=== PATIENT | female | born 1960 | race Caucasian/White ===

== ENCOUNTER 2023-01-01 15:35 | Outpatient (REF) | payer MEDICAID, SELFPAY ==
[2023-01-01 17:14] LABS: Alanine Aminotransferase 13 U/L (0-31); Albumin Level 4.7 g/dL (3.5-5.0); Alkaline Phosphatase 62 U/L (39-117); Aspartate Amino Transferase 21 U/L (5-31); Bilirubin Direct 0.2 mg/dL (0.0-0.5); Bilirubin Total 0.4 mg/dL (0.0-1.0); Total Protein 7.7 g/dL (6.5-8.0)
[2023-01-02 07:38] LABS: HIV AB/AG Nonreactive (Nonreactive); HIV Num 1 0.05 S/CO (0.00-0.99); ~HepC Num1 2.09 S/CO (0.00-0.79); ~Hepatitis C Antibody Reactive (Nonreactive)
[2023-01-02 07:58] LABS: Syphilis Screen Nonreactive (Nonreactive)
[2023-01-03 16:49] LABS: TS Negative Control Passed; TS Panel A 0; TS Panel B 1; TS Positive Control Passed; TSpotTB Negative (Negative)
[2023-01-04 18:23] LABS: HCV Log PCR <1.18 NOT DETECTED Log IU/mL (NOT DETECTED); HepC Viral Load <15 NOT DETECTED IU/mL (NOT DETECTED)
== END 2023-01-01 15:36 | disposition home or self-care (01) ==
LOC: HO.HHCL 15:35
PROVIDERS: Visit Provider Family Medicine
DX: Z11.4 Encounter for screening for human immunodeficiency virus [HIV] (principal); Z11.1 Encounter for screening for respiratory tuberculosis; F11.20 Opioid dependence, uncomplicated
CPT/HCPCS: 36415; 80076; 86481; 86780; 86803; 87389; 87522

== ENCOUNTER 2023-07-23 16:26 | Outpatient (REF) | payer MEDICAID, SELFPAY ==
[2023-07-23 17:46] LABS: MANUAL DIFF FLAG NO
[2023-07-23 17:54] LABS: Basophils Percent Auto 0.5 % (0-2); Eosinophils Absolute Auto 0.3 X10*3/uL (0.0-0.4); Eosinophils Percent Auto 3.2 % (0-4); Hematocrit 41.6 % (37.0-47.0); Hemoglobin 13.7 g/dl (12.0-16.0); Imm Gran Abs Auto 0.01 X10*3/uL (0.00-0.03); Imm Gran Pct Auto 0.1 % (0.0-0.4); Lymphocytes Absolute Auto 2.6 X10*3/uL (1.2-4.9); Lymphocytes Percent Auto 33.1 % (20-40); Mean Corpuscular HGB Conc 32.9 g/dl (31.0-35.0); Mean Corpuscular Hemoglobin 31.4 pg (27.0-33.0); Mean Corpuscular Volume 95.2 fL (80.0-98.0); Mean Platelet Volume 10.2 fL (9.4-12.3); Monocytes Absolute Auto 0.6 X10*3/uL (0.1-1.2); Monocytes Percent Auto 8.1 % (2-11); Neutrophils Absolute Auto 4.3 x10*3/uL (2.0-8.3); Platelet Count 226 X10*3/uL (160-400); Red Blood Count 4.37 X10*6/uL (4.20-5.50); White Blood Count 7.9 X10*3/uL (4.8-10.8)
[2023-07-23 18:27] LABS: Erythrocyte Sedimentation Rate 6 MM/HR (0-20)
[2023-07-23 19:06] LABS: Alanine Aminotransferase 17 U/L (0-31); Albumin Level 4.2 g/dL (3.5-5.0); Alkaline Phosphatase 63 U/L (39-117); Anion Gap 15 (12-20); Aspartate Amino Transferase 19 U/L (5-31); Bilirubin Total 0.2 mg/dL (0.0-1.0); Blood Urea Nitrogen 23 mg/dL (9-16); Calcium 9.5 mg/dL (8.4-10.2); Carbon Dioxide 25 mmol/L (22-29); Chloride 106 mmol/L (96-108); Cholesterol 207 mg/dL (<200); Estimated Glomerular Filt Rate > 60; Glucose Random 94 mg/dL (60-115); HDL Cholesterol 81 mg/dL (>40); LDL Cholesterol Calculated 95 mg/dL (<100); Potassium 4.6 mmol/L (3.3-5.1); Sodium 141 mmol/L (135-145); Total Protein 6.9 g/dL (6.5-8.0); Triglycerides 156 mg/dL (<150)
[2023-07-25 23:59] LABS: C. trachomatis RNA TMA NOT DETECTED (NOT DETECTED); N. gonorrhoeae RNA TMA NOT DETECTED (NOT DETECTED)
[2023-07-28 04:58] LABS: HPV 16 RNA NOT DETECTED (NOT DETECTED); HPV mRNA E6/E7 rflx Detected (Not Detected)
== END 2023-07-23 16:27 | disposition home or self-care (01) ==
LOC: HO.HHCL 16:26
PROVIDERS: Visit Provider General Practice
DX: Z12.4 Encounter for screening for malignant neoplasm of cervix (principal); Z11.51 Encounter for screening for human papillomavirus (HPV); N95.0 Postmenopausal bleeding
CPT/HCPCS: 36415; 80053; 80061; 81513; 85025; 85652; 87491; 87591; 87624; 87625; 88142

== ENCOUNTER 2023-07-25 12:37 | Outpatient (REF) | payer BC, SELFPAY ==
--- NOTE | ~2023-07-25 | US_ITS ---
EXAMINATION: US PELVIS CLINICAL INFORMATION: Reason for Exam PMB x 5 days, friable cervix, palpable nodules COMPARISON: None available. TECHNIQUE: Ultrasound of the pelvis is performed using both transabdominal and transvaginal transducers along with Doppler. Transvaginal imaging is performed due to inadequate visualization transabdominally. Exam is limited due to body habitus. FINDINGS: The uterus is anteverted and retroflexed and measures 7.8 x 3 x 4.3 cm in dimension. No focal uterine lesion is seen. The endometrium is not well visualized. Endometrial thickness estimated at 0.8 cm which is abnormally thickened for a postmenopausal patient. No focal uterine lesion is seen. There is a slightly heterogeneous soft tissue mass in the cervix with focal hypoechoic areas and internal vascularity. This measures 3.6 x 2 x 3.5 cm. This is of uncertain etiology. The ovaries are not seen. There are prominent adnexal vessels. There is no fluid in the pelvis. US/US pelvic and transvaginal IMPRESSION: Limited exam. The endometrium is not well visualized. Endometrial thickness estimated at 8 mm which is abnormally thickened for a postmenopausal patient. Tissue sampling recommended. 3.6 x 2 x 3.5 cm cervical mass, uncertain etiology. Follow-up pelvic MRI may be helpful. Prominent bilateral pelvic vessels questionable for pelvic congestion.
== END 2023-07-25 12:38 | disposition home or self-care (01) ==
LOC: HO.US 12:37
PROVIDERS: PCP Internal Medicine; Visit Provider General Practice
DX: N95.0 Postmenopausal bleeding (principal)
CPT/HCPCS: 76830; 76856

== ENCOUNTER 2024-07-14 16:03 | Outpatient (REF) | payer BC, SELFPAY ==
--- OUTSIDE RECORDS SUMMARY | 2024-07-14 18:45 | XMS_ITS | Encounter Summary ---
Author Organization [employer] Address [address] [place] [address] [address] [place] [address] Care Team Providers Care Dray Driver Name Role Phone Jessy Braxton MD Primary Care Provide r Reason for Visit * Reason Comments Med Refill Encounter Details Date Type Department Care Team ([facility] Contact Info) Description 05/08/2023 Refill [facility] MEDICINE [address] [place] [address] [phone] Corona Eugene MD [address] [place], [place] [phone] Opioid dependence, uncomplicated (CMS/HCC) Social History Tobacco Use Types Packs/Day Years Used Date Smoking Tobacco: Every Day Cigarettes Smokeless Tobacco: Never Comments Unknown Sex and Gender Information Value Date Recorded Sex Assigned at Female 01/16/2022 10:29 AM EDT Legal Sex Female 10:29 AM EDT Gender Identity Female 01/16/2022 10:29 AM EDT Sexual Orientation Straight 01/16/2022 10 :29 AM EDT documented as of this encounter Plan of Treatment Upcoming Encounters Date Type Department Care Team (Late Contact Info) Description 09/08/2024 1:30 PM EDT Clinical Support [facility] MEDICINE [address] [place] [address] [phone] Abbie Coto RN documented as of this encounter Visit Diagnoses Diagnosis Opioid dependence, uncomplicated (CMS/HCC) documented in this encounter Care Teams Dray Driver Relationship Specialty Start Date End Date Jessy Braxton MD [address] [place] [address] [phone] PCP - General Family Medicine 12/19/17 documented as of this encounter
--- OUTSIDE RECORDS SUMMARY | 2024-07-14 18:45 | XMS_ITS | Encounter Summary ---
Author Organization [employer] Address [address] [place] [address] [address] [place] [address] Care Team Providers Care Solution Consultant Name Role Phone Jessy Braxton MD Primary Care Provide r Reason for Visit * Reason Comments Med Refill Encounter Details Date Type Department Care Team (Late Contact Info) Description 02/19/2023 Refill [facility] MEDICINE [address] [place] [address] [phone] Peggy Flores MD [address] [place] [address] Opioid dependence, uncomplicated (CMS/HCC) Social History Tobacco [...] Encounters Date Type Department Care Team (Late st Contact Info) Description 09/08/2024 1:30 PM EDT Clinical Support [facility] MEDICINE [address] [place] [phone] Abbie Coto RN documented as of this encounter Visit Diagnoses Diagnosis Opioid dependence, uncomplicated (CMS/HCC) documented in this encounter Care Teams Solution Consultant Relationship Specialty Start Date End Date Jessy Braxton MD [address] [place] [address] [phone] PCP - General Family Medicine 12/19/17 documented as of this encounter
--- OUTSIDE RECORDS SUMMARY | 2024-07-14 18:45 | XMS_ITS | Continuity of Care Document ---
Author Organization [facility] Address [address] [address]- Care Team Providers Care Bar And Filler Assembler Name Role Phone Mor Bui MD, Jessy Dickson Primary Care Physici an Encounter [facility] Date(s): 07/04/24 - 07/11/24 [facility] [address] [address]- Attending Physician: Gigi Mendez MD Admitting Physician: Gigi Mendez MD Referring Physician: Gigi Mendez MD Encounter Type: One Time OP Allergies, Adverse Reactions, Alerts No Known Allergies Immunizations Given and Recorded Vaccine Date Status Refusal Reason tetanus/diphtheria/pertussis, acel(Tdap) 08/04/14 Given Medications aspirin 81 mg oral delayed release tablet 81 mg, 1, tablet, By Mouth, Daily, # 30 tablet, Refills 0, Tot. Refills 0, Maintenance, 06/01/24 12:22:00 AM EDT, Route to Pharmacy Electronically, [facility] #[id number], Partial fill upon patient request if the prescription is for a schedule II opioid drug., 152, cm, 04/30/24 11:04:00 EST, Height, 49, kg, 05/31/24 21:55:00 EDT, Dry Weight Start Date: 06/01/24 Status: Ordered Quantity: 30.0 Unit: tablet Repeat number: 1 aspirin 81 mg oral delayed release tablet 81 mg, 1, tablet, By Mouth, Daily, # 90 tablet, Refills 3, Tot. Refills 3, Maintenance, 07/10/24 11:36:00 AM EDT, Route to Pharmacy Electronically, [facility] #[id number], Partial fill upon patient request if the prescription is for a schedule II opioid drug., 152, cm, 07/08/24 10:32:00 EDT, Height, 49, kg, 05/31/24 21:55:00 EDT, Dry Weight Start Date: 07/10/24 Status: Ordered Quantity: 90.0 Unit: tablet Repeat number: 4 Ativan 0.5 mg oral tablet See Instructions, PRN for anxiety, 1-2 tablet By Mouth one hour before radiation treatments, # 24 tablet, 0 Refills, Maintenance, 01/03/24 10:34:00 AM EDT, Tablet, [facility] #[id number], Partial fill upon patient request if the prescription is for a schedule II opioid drug., 152, cm, 247:00:00 EDT, Height, 54.2, kg, 12/17/23 10:42:00 EDT, Dry Weight Start Date: 01/03/24 Status: Ordered Quantity: 24.0 Unit: tablet Repeat number: 1 Flomax 0.4 mg oral capsule 0.4 mg, 1, capsule, By Mouth, Daily, # 7 capsule, Refills 0, Tot. Refills 0, Maintenance, 12/21/20 4:07:00 PM EDT, Route to Pharmacy Electronically, [id number], Partial fill upon patient request if the prescription is for a schedule II opioid drug., 163, cm, 12/21/20 13:27:00 EDT, Height, 52, kg, 12/21/20 13:27:00 EDT, Dry Weight Start Date: 12/21/20 Stop Date: 12/28/20 Status: Ordered Quantity: 7.0 Unit: capsule Repeat number: 1 lidocaine-prilocaine 2.5%-2.5% topical cream See Instructions, Apply dime-sized amount over port and cover with plastic, 1 hour before port use,# 30 Gm, 2 Refills, Maintenance, 10/04/23 1:49:00 PM EDT, [facility] #[id number], Partial fill upon patient request if the prescription is for a schedule II opioid drug., Apply dime-sized amount over port and cover with plastic, 1 hour before port use, 152, cm, 10/04/23 13:29:00 EDT, Height, 53.8, kg, 10/03/23 11:13:00 EDT, Dry Weight Start Date: 10/04/23 Status: Ordered Quantity: 30.0 Unit: g Repeat number: 3 Lomotil 0.025 mg-2.5 mg oral tablet 2, tablet, By Mouth, 4 times a day, PRN, Take 2 tablets 4 times daily until diarrhea stops. Then use 1 tablet up to 4 times per day as needed, # 50 tablet, Refills 0, Tot. Refills 0, Maintenance, forloose stool, 12/18/23 9:33:00 AM EDT, Route to Pharmacy Electronically, [facility] #[id number] Tablet, Partial fill upon patient request if the prescription is for a schedule II opioid drug., 152, cm, 12/17/23 11:11:00 EDT, Height, 54.2, kg, 12/17/23 10:42:00 EDT, Dry Weight Start Date: 12/18/23 Status: Ordered Quantity: 50.0 Unit: tablet Repeat number: 1 Meclizine = 25 mg, By Mouth, 3 times a day, PRN as needed for dizziness, 0 Refills, Maintenance, 07/30/23 2:02:00 PM EDT, Partial fill upon patient request if the prescription is for a schedule II opioid drug. Start Date: 07/30/23 Status: Ordered Repeat number: 1 ondansetron 4 mg oral tablet 1 tablet = 4 mg, By Mouth, Every 8 hours, PRN as needed for nausea/vomiting, # 20 tablet, 0 Refills, Maintenance, 12/21/20 4:02:00 PM EDT, Tablet, [facility] #[id number], Partial fill upon patient request if the prescription is for a schedule II opioid drug., 163, cm, 12/21/20 13:27:00 EDT, Height, 52, kg, 12/21/20 13:27:00 EDT, Dry Weight Start Date: 12/21/20 Stop Date: 12/26/20 Status: Ordered Quantity: 20.0 Unit: tablet Repeat number: 1 Plavix 75 mg oral tablet 75 mg, By Mouth, Daily, # 20 tablet, Refills 0, Tot. Refills 0, Soft Stop, 06/01/24 12:21:00 AM EDT,Route to Pharmacy Electronically, [facility] #[id number], Partial fill upon patient request ifthe prescription is for a schedule II opioid drug., 152, cm, 04/30/24 11:04:00 EST, Height, 49, kg,05/31/24 21:55:00 EDT, Dry Weight Start Date: 06/01/24 Stop Date: 07/01/24 Status: Ordered Quantity: 20.0 Unit: tablet Repeat number: 1 Plavix 75 mg oral tablet 75 mg, 1, tablet, By Mouth, Daily, # 90 tablet, Refills 3, Tot. Refills 3, Maintenance, 07/10/24 11:35:00 AM EDT, Route to Pharmacy Electronically, [facility][id number], Partial fill upon patient request if the prescription is for a schedule II opioid drug., 152, cm, 07/08/24 10:32:00 EDT, Height, 49, kg, 05/31/24 21:55:00 EDT, Dry Weight Start Date: 07/10/24 Status: Ordered Quantity: 90.0 Unit: tablet Repeat number: 4 prochlorperazine 5 mg oral tablet 1 tablet = 5 mg, By Mouth, 3 times a day, PRN for nausea/vomiting, # 90 tablet, 3 Refills, Maintenance, 03/05/24 12:00:00 AM EST, Tablet, [facility] #[id number], Partial fill upon patient request if the prescription is for a schedule II opioid drug., 152, cm, 11/08/23 9:50:00 EDT, Height, 54.2, kg, 11/08/23 10:07:00 EDT, Dry Weight Start Date: 03/05/24 Stop Date: 07/03/24 Status: Ordered Quantity: 90.0 Unit: tablet Repeat number: 4 Suboxone 8 mg-2 mg Sublingual Film 1 film, Sublingual, 2 times a day, 0 Refills, Maintenance, 12/13/23 10:47:00 AM EDT, Partial fill upon patient request if the prescription is for a schedule II opioid drug. Start Date: 12/13/23 Status: Ordered Repeat number: 1 Vitamin D3 1000 intl units oral capsule 1 capsule = 25 mcg, By Mouth, Daily, 0 Refills, Maintenance, 07/30/23 2:01:00 PM EDT, Partial fill upon patient request if the prescription is for a schedule II opioid drug. Start Date: 07/30/23 Status: Ordered Repeat number: 1 Problem List Condition Confirmation Course Effective Dates Status Health St atus Informant Acute back pain with sciatica Confirmed Active Arthrosis of hand Confirmed Active Abnormal finding on imaging Confirmed Active Cervical cancer Confirmed Active Opioid dependence Confirmed Active Smoker Confirmed Active Vitamin D deficiency Confirmed Active Social History Social History Type Response Smoking Status Former smoker, quit more than 30 days ago entered on: 04/28/24 Sex Sex Representation Female (finding) Patient Care team information Care Team Personnel Name: Jessy Braxton MD Position: [facility] Outreach Member Role: PCP Address: [address] [place] [address] [address] [place] [phone]- Telecom: Name: Gayle Bourgeois RN Position: [facility] Onco RN Member Role: Primary Care Nurse Name: Avinash [place] RN Position: [facility] Onco RN Member Role: Primary Care Nurse Name: Mariajose Forbes RN Position: [facility] Onco RN Member Role: Primary Care Nurse Name: Mitesh Bridges RN Position: S RN Member Role: Primary Care Nurse Name: Leidy Lindsay Position: S Outreach Member Role: Lifetime Consulting Physician Name: Angela Alicea RN Position: S Onco RN Member Role: Primary Care Nurse Care Team Related Persons Name: JACOBO IQBAL Name: JEWEL IQBAL Insurance Providers Guarantor name: MINE RASHEED Health Plan Information #: 1 Payer: [email or web address] [place] [employer] Member Number: [id number] Policy Number: NA Group Number: [id number] Health Plan Information #: 2 Payer: [email or web address] [place] [employer] Member Number: [id number] Policy Number: NA Group Number: [id number]
--- OUTSIDE RECORDS SUMMARY | 2024-07-14 18:45 | XMS_ITS | Encounter Summary ---
Author Organization [employer] Address [address] [place] [address] [address] [address] Care Team Providers Care Steam Hand Name Role Phone Jessy Braxton MD Primary Care Provide r Encounter Details Date Type Department Care Team ([facility] Contact Info) Description 03/31/2022 Orders Only [facility] MEDICINE [address] [place] [phone] Abbie Coto, RN Social History Tobacco Use Types Packs/Day Years Used Date Smoking Tobacco: Every Day Cigarettes Smokeless Tobacco: Never Comments Unknown Sex and Gender Information Value Date Recorded Sex Assigned at Female 01/16/2022 10:29 AM EDT Legal Sex Female 10:29 AM EDT Gender Identity Female 01/16/2022 10:29 AM EDT Sexual Orientation Straight 01/16/2022 10 :29 AM EDT COVID-19 Exposure Response Date Recorded In the last 10 days, have yo u been in contact with someone who was confirmed or suspected to have Coronavirus/COVID-19? No / Unsure 03/27/2022 2:44 PM EST documented as of this encounter Plan of Treatment Upcoming Encounters Date Type Department Care Team (Late st Contact Info) Description 09/08/2024 1:30 PM EDT Clinical Support [address] [phone] Abbie Coto, RN documented as of this encounter Visit Diagnoses Not on filedocumented in this encounter Care Teams Steam Hand Relationship Specialty Start Date End Date Jessy Braxton MD [address] [place], [place] [phone] PCP - General Family Medicine 12/19/17 documented as of this encounter
--- OUTSIDE RECORDS SUMMARY | 2024-07-14 18:45 | XMS_ITS | Encounter Summary ---
Author Organization [employer] Address [address] [facility] [address] [place] [address] Care Team Providers Care Outside Sales Account Representative Name Role Phone Jessy Braxton MD Primary Care Provide r Reason for Visit * Reason Comments OBAT Encounter Details Date Type Department Care Team (Latest Contact Info) Description 07/14/2024 2:30 PM EDT Clinical Support [address] [phone] Abbie Coto RN Opioid dependence, uncomplicated (CMS/HCC) (Primary Dx) Social History Tobacco Use Types Packs/Day Years Used Date Smoking Tobacco: Former Cigarettes Smokeless Tobacco: Never Comments Unknown Sex [...] Description 09/08/2024 1:30 PM EDT Clinical Support [address] [address] Abbie Coto RN Scheduled Orders Name Type Priority Associated Diagnoses Orde r Schedule Drug Monitoring, Cocaine Metabolite, Quantitative, Urine Lab Routine Opioid dependence, uncomplicated (CMS/HCC) Ordered: 07/14/2024 documented as of this encounter Procedures Procedure Name Priority Date/Time Associated Diagnosis Comments POCT JANET-14 URINE DRUG SCREEN Routine 07/14/2024 3:29 PM EDT Opioid dependence, uncomplicated (CMS/HCC) documented in this encounter Results * POCT JANET-14 Urine Drug Screen (07/14/2024 3:29 PM EDT) THC Negative Cocaine Screen, Urine Positive Opiate Screen, Urine Negative Methamphetamine Screen Urine Negative Amphetamine Screen, Urine Negative Benzodiazepines Screen, Urine Negative Barbiturate Screen, Urine Negative Methadone Screen, Urine Negative Buprenophine Screen, Urine Positive TCA, Urine Negative MDMA Urine Negative ng/mL Oxycodone Screen, Urine Negative Phencyclidine (PCP), Urine Negative Fentanyl, Urine Negative Urine Urine specimen obtained by clean catch procedure / Unknown 07/14/2024 3:29 PM EDT Corona Eugene MD POINT OF CARE TEST ENTER/EDIT OR DERABLES Final Result documented in this encounter Visit Diagnoses Diagnosis Opioid dependence, uncomplicated (CMS/HCC)- Primary documented in this encounter Care Teams Outside Sales Account Representative Relationship Specialty Start Date End Date Jessy Braxton MD [address] [place] [phone] PCP - General Family Medicine 12/19/17 documented as of this encounter
--- OUTSIDE RECORDS SUMMARY | 2024-07-14 18:45 | XMS_ITS | Encounter Summary ---
Author Organization [employer] Address [address] [place] [address] [address] [address] Care Team Providers Care Customs Officer Name Role Phone Jessy Braxton MD Primary Care Provide r Encounter Details Date Type Department Care Team ([facility] Contact Info) Description 03/31/2022 Orders Only [facility] MEDICINE [address] [place] [phone] Abbie Coto, RN Social History Tobacco Use [...] Description 09/08/2024 1:30 PM EDT Clinical Support [address] [address] Abbie Coto, RN documented as of this encounter Visit Diagnoses Not on filedocumented in this encounter Care Teams Customs Officer Relationship Specialty Start Date End Date Jessy Braxton MD [address] [place], [place] [phone] PCP - General Family Medicine 12/19/17 documented as of this encounter
--- OUTSIDE RECORDS SUMMARY | 2024-07-14 18:45 | XMS_ITS | Clinical Summary ---
Author Organization [facility] Address [address] [place] [address] Phone Care Team Providers Care Senior Mortgage Loan Processor Name Role Phone Unavailable Primary Care Provider Unavailabl e Encounters Date Type Department Care Team Description 04/16/2024 8:40 AM EST - 04/16/2024 11:59 PM EST Hospital Encounter [facility] PET Scan [address] [place] [address] Malignant neoplasm of endocervix (CMS/HCC V24, CMS/HCC V28) Discharge Disposition: Home or Self Care from Last 3 Months Social History Tobacco Use Types Packs/Day Years Used Date Smoking Tobacco: Never Assessed Comments Unknown Sex and Gender Information Value Date Recorded Sex Assigned at Not on file Legal Sex Female 1:39 PM EDT Gender Identity Not on file Sexual Orientation Not on file Plan of Treatment Health Maintenance Due Date Last Done Comments Breast Cancer Screening 1960 Pneumococcal Vaccine: 50+ Years (1 of 2 - PCV) 06/20/1978 Pneumococcal Vaccine: Pediatrics (0 to 5 Years) and At-Risk Patients (6 to 64 Years) (1 of 2 - PCV) 06/20/1978 Zoster Vaccines (1 of 2) 06/20/1978 Hepatitis A Vaccines (2 of 2 - Risk 2-dose series) 07/31/2021 01/31/2021 Colorectal Cancer Screening: Colonoscopy 10/16/2023 Depression Screening 10/16/2023 Osteoporosis Screening (Bone Density Screening) 10/16/2023 Social Influencers of Health Screening 10/16/2023 COVID-19 Vaccine ( - 2023-2 5 season) 2023 04/01/2021, 06/01/2020, 05/04/2020 Falls Risk Assessment 06/20/2024 DTaP,Tdap,and Td Vaccines (2 - Td or Tdap) 08/04/2024 08/04/2014 Influenza Vaccine (Season Ended) 2024 12/19/2017, 05/05/2015 Cervical Cancer Screening: P ap Smear 07/22/2026 07/23/2023 RSV Immunization Adult Patients (1 - 1-dose 75+ series) 06/20/2034 Hepatitis C Screening Completed 01/01/2023 HIB Vaccines Aged Out No longer eligi ble based on patient's age to complete this topic HPV Vaccines Aged Out No longer eligi ble based on patient's age to complete this topic Hepatitis B Vaccines Aged Out No long er eligible based on patient's age to complete this topic IPV Vaccines Aged Out No longer eligi ble based on patient's age to complete this topic MMR Vaccines Aged Out No longer eligi ble based on patient's age to complete this topic Meningococcal ACWY Vaccine Aged Out N o longer eligible based on patient's age to complete this topic Meningococcal B Vaccine Aged Out No l onger eligible based on patient's age to complete this topic RSV Immunization Patients Under 20 months Aged Out No longer eligible b ased on patient's age to complete this topic Varicella Vaccines Aged Out No longer eligible based on patient's age to complete this topic Procedures Procedure Name Priority Date/Time Associated Diagnosis Comments PET CT SKULL TO MID THIGH SUBSEQUENT Routine 04/16/2024 9:51 AM EST Malignant neoplasm of endocervix ([facility] V24, [facility] V28) from Last 3 Months Results * PET CT Skull to Mid Thigh Subsequent (04/16/2024 9:51 AM EST) Anatomical Region Laterality Modality Body Radiographic Minerva ging 04/16/2024 10:3 6 AM EST Impressions 04/17/2024 4:09 AM EST 1. ??Interval decrease in FDG activity along the cervix in keeping with treatment response 2. ??Previously seen right axillary lymph nodes no longer demonstrate significant FDG activity 3. ??No FDG avid lymphadenopathy or osseous disease 4. ??Nonspecific wall thickening of the gastric fundus. ??Consider direct visualization. Please note: The CT was acquired at a low radiation dose settings. ??The images are of nondiagnostic quality and used solely for purposes of attenuation correction and slice localization for the PET scan. ??If a diagnostic CT study is desired it must be ordered separately. -------- FINAL REPORT -------- Dictated By: Imelda Castro Dictated Date: 04/16/2024 10:36 ET Assigned Physician: Imelda Castro Reviewed and Electronically Signed By: Imelda Castro Signed Date: 04/17/2024 04:09 ET Workstation ID: [id number] Transcribed By: Self Edit Transcribed Date: 04/16/2024 11:01 ET Narrative 04/17/2024 4:09 AM EST INDICATION: CERVICAL CANCER. ??Restaging. TECHNIQUE: FDG PET-CT imaging was performed from the skull bases through the thighs in a single acquisition with data set reconstructed in axial, coronal, and sagittal planes at the computer workstation with fused data from both the PET imaging study and attenuation correction CT. The CT portion of the examination was done strictly for attenuation correction and is not a true diagnostic CT examination. ??Enteric contrast was administered. DLP: ??239 mGy-cm Radiopharmaceutical: 12.6 mCi of F-18 FDG IV. Blood glucose: 105 mg/dl. COMPARISON: Prior PET/CT August 2023 FINDINGS: HEAD AND NECK: Interval decrease in FDG activity along the right nasal cavity SUV Max 2.0 (previously 3.6). ??No FDG avid cervical lymphadenopathy. THORAX: Nonspecific right hilar FDG activity SUV max 2.4 (mediastinal blood pool activity SUV max 2.2). ??Few scattered mediastinal lymph nodes without significant FDG activity in comparison to background. Right-sided Port-A-Cath with tip in the distal SVC. ??Mild thoracic aortic calcifications. Small axillary lymph nodes without significant FDG activity. ABDOMEN/PELVIS: FDG activity at the level of the cervix/vagina SUV max 3.6 (previously 7.3). No FDG avid abdominal or pelvic lymphadenopathy. ??Nonspecific gastric wall thickening at the fundus. MUSCULOSKELETAL: No abnormal FDG activity. Procedure Note Imelda Castro MD - 04/17/2024 INDICATION: CERVICAL CANCER. Restaging. TECHNIQUE: FDG PET-CT imaging was performed from the skull bases throughthe thighs in a single acquisition with data set reconstructed in axial,coronal, and sagittal planes at the computer workstation with fused datafrom both the PET imaging study and attenuation correction CT. The CTportion of the examination was done strictly for attenuation correctionand is not a true diagnostic CT examination. Enteric contrast wasadministered. DLP: 239 mGy-cm Radiopharmaceutical: 12.6 mCi of F-18 FDG IV. Blood glucose: 105 mg/dl. COMPARISON: Prior PET/CT August 2023 FINDINGS: HEAD AND NECK: Interval decrease in FDG activity along the right nasalcavity SUV Max 2.0 (previously 3.6). No FDG avid cervicallymphadenopathy. THORAX: Nonspecific right hilar FDG activity SUV max 2.4 (mediastinalblood pool activity SUV max 2.2). Few scattered mediastinal lymph nodeswithout significant FDG activity in comparison to background. Right-sided Port-A-Cath with tip in the distal SVC. Mild thoracic aorticcalcifications. Small axillary lymph nodes without significant FDG activity. ABDOMEN/PELVIS: FDG activity at the level of the cervix/vagina SUV max 3.6(previously 7.3). No FDG avid abdominal or pelvic lymphadenopathy. Nonspecific gastric wallthickening at the fundus. MUSCULOSKELETAL: No abnormal FDG activity. IMPRESSION: 1. Interval decrease in FDG activity along the cervix in keeping withtreatment response 2. Previously seen right axillary lymph nodes no longer demonstratesignificant FDG activity 3. No FDG avid lymphadenopathy or osseous disease 4. Nonspecific wall thickening of the gastric fundus. Consider directvisualization. Please note: The CT was acquired at a low radiation dose settings. The images are ofnondiagnostic quality and used solely for purposes of attenuationcorrection and slice localization for the PET scan. If a diagnostic CTstudy is desired it must be ordered separately. -------- FINAL REPORT -------- Dictated By: Imelda Castro Dictated Date: 04/16/2024 10:36 ET Assigned Physician: Imelda Castro Reviewed and Electronically Signed By: Imelda Castro Signed Date: 04/17/2024 04:09 ET Workstation ID: [id number] Transcribed By: Self Edit Transcribed Date: 04/16/2024 11:01 ET Christ[facility] Arevalo [facility] Final Result from Last 3 Months Insurance [facility]
--- OUTSIDE RECORDS SUMMARY | 2024-07-14 18:45 | XMS_ITS | Clinical Summary ---
Author Organization [employer] Address [address] [place] [address] [address] [place] [address] Care Team Providers Care Intake Coordinator Name Role Phone Jessy Braxton MD Primary Care Provide r Allergies No known active allergies Medications acetaminophen (Tylenol 8 Hour) 650 MG ER tabletIndicati ons:Pain Take 1 to 2 tablets by mouth every 8 hours as needed. Do not break, crush, dissolve, or chew. 30 tablet 3 02/29/20 22 Active nicotine (Nicoderm CQ) 14 MG/24HR patch Place 1 patch on the skin 1 (one) time each day at the same time. 42 patch 11/07/19 23 Active nicotine polacrilex (Commit) 2 MG lozenge Dissolve 1 lozenge (2 mg) in the mouth if needed for smoking cessation. 100 lozenge 11/07/19 23 Active cholecalcifero l (Vitamin D High Potency) 25 MCG (1000 UT) capsule TAKE 1 CAPSULE BY MOUTH EVERY DAY 90 capsule 02/28/20 23 Active Buprenorphine HCl-Naloxone HCl (Suboxone) 8-2 MG SL filmIndication s:Opioid type dependence, continuous (CMS/HCC) Place 1 Film under the tongue 2 times daily. 56 Film 1 07/01/19 25 025 Active Buprenorphine HCl-Naloxone HCl (Suboxone) 8-2 MG SL filmIndication s:Opioid type dependence, continuous (CMS/HCC) Place 1 Film under the tongue 2 times daily. 56 Film 1 05/09/19 25 025 Discontinued(Re order (will not trigger notification to Pharmacy)) Active Problems Problem Noted Date Diagnosed Date Postmenopausal bleeding 07/24/2023 Assessment & Plan (07/24/2023 9:06 AM EDT): 63yo F with postmenopausal bleeding x 5 days, ten years after natural menopause, with sweating as constitutional symptom, mild abd/pelvic pain. 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 Vitamin D deficiency 01/15/2018 Encounters Date Type Department Care Team Description 07/14/2024 2:30 PM EDT Clinical Support [facility] [address] [place] [phone] Abbie Coto RN Opioid dependence, uncomplicated (CMS/HCC) (Primary Dx) 07/14/2024 Travel 06/30/2024 Refill [facility] [address] [place] [phone] Abbie Coto RN Opioid type dependence, continuous (CMS/HCC) 05/19/2024 1:00 PM EST Telemedicine [facility] [address] [place] [address] Teodora Keith RN Opioid dependence, uncomplicated (CMS/HCC) 05/19/2024 Travel 05/08/2024 Refill [facility] [address] [place] [address] Abbie Coto RN Opioid type dependence, continuous (CMS/HCC) from Last 3 Months Immunizations Name Administration Dates Next Due Hep A, Adult 01/31/2021 Influenza injectable quadriv alent IIV4 with preservative 12/19/2017,05/05/2015 Tdap 08/04/2014 Social History Tobacco Use Types Packs/Day Years Used Date Smoking Tobacco: Former Cigarettes Smokeless Tobacco: Never Tobacco Cessation:Counseling Given: Not Answered Comments Unknown Sex and Gender Information Value Date Recorded Sex Assigned at Female 01/16/2022 10:29 AM EDT Legal Sex Female 10:29 AM EDT Gender Identity Female 01/16/2022 10:29 AM EDT Sexual Orientation Straight 01/16/2022 10 :29 AM EDT Last Filed Vital Signs Vital Sign Reading Time Taken Comments Blood Pressure 125/69 07/23/2023 3:34 PM EDT Pulse 82 07/23/2023 3:34 PM EDT Temperature 36.2 ??C (97.2 ??F) 07/23/2023 3:34 PM ED T Respiratory Rate 20 07/23/2023 3:34 PM EDT Oxygen Saturation 93% 07/23/2023 3:34 PM EDT Inhaled Oxygen Concentration - - Weight 54.6 kg (120 lb 6.4 oz) 07/23/2023 3:34 P M EDT Height 162.6 cm (5' 4 ) 07/23/2023 3:34 PM EDT Body Mass Index 20.67 07/23/2023 3:34 PM EDT Plan of Treatment Upcoming Encounters Date Type Department Care Team (Late st Contact Info) Description 09/08/2024 1:30 PM EDT Clinical Support [address] [phone] Abbie Coto, RN Health Maintenance Due Date Last Done Comments CT Colonography 1959 Colonoscopy 1959 Colorectal Cancer Screening 1959 Depression Screening 1959 FIT DNA/Cologuard 1959 FIT 1959 FOBT 1959 SDOH Screening 1960 Sigmoidoscopy 1959 Alcohol/Substance Use Screening 1971 Mammogram 1999 Pneumococcal Vaccine: 50+ Years (1 of 1 - PCV) 06/20/2009 Zoster Vaccines (1 of 2) 06/20/2009 RSV Patients and Patients Aged 60 years or older (1 - Risk 60-74 years 1-dose series) 2019 COVID-19 Vaccine (4 - 2023-2 5 season) 2023 04/01/2021, 06/01/2020, 05/04/2020 Influenza Vaccine (#1) 2023 8, 05/05/2015 DTaP/Tdap/Td Vaccines (2 - T d or Tdap) 08/04/2024 08/04/2014 Tobacco Screening 01/27/2025 01/28/2024 Pap Smear 07/22/2026 07/23/2023 Cervical Cancer Screening 07/22/2028 HPV/Cotest 07/22/2028 07/23/2023 Hepatitis A Vaccines Aged Out 01/31/2021 No long er eligible based on patient's age to complete this topic Hepatitis C Screening Completed 01/01/2023 , 01/01/2023, 07/20/2020 HIB Vaccines Aged Out No longer eligi [...] patient's age to complete this topic Meningococcal Vaccine Aged Out No bijan salo eligible based on patient's age to complete this topic RSV under 20 months Aged Out No longe r eligible based on patient's age to complete this topic Rotavirus Vaccines Aged Out No longer eligible based on patient's age to complete this topic Procedures Procedure Name Priority Date/Time Associated Diagnosis Comments POCT JANET-14 URINE DRUG SCREEN Routine 07/14/2024 3:29 PM EDT Opioid dependence, uncomplicated (CMS/HCC) HPV MRNA E6/E7 REFLEX TO HPV 16, 18/45 Routine 07/23/2023 4:06 PM EDT PAP SMEAR Routine 07/23/2023 4:06 PM EDT HEPATITIS C AB W/REFL TO HCV RNA, QN, PCR Routine 01/01/2023 3:40 PM EDT from Last 3 Months or Most Recently Relevant to Health Maintenance Results * POCT JANET-14 Urine Drug Screen [...] CARE TEST ENTER/EDIT OR DERABLES Final Result * (ABNORMAL) HPV mRNA E6/E7 w/Reflex to HPV Genotypes 16, 18/45 (07/23/2023 4:06 PM EDT) HPV nRNA E6/E7 Detected(A ) Not Detected [facility] Comment:Methodology: Transcr iption-Mediated AmplificationThis assay detects E6/E7 viral messenger RNA (mRNA) from 14high-risk HPV types (16,18,31,33,35,39,45,51,52,56,58,59,66,68).Cervical sources are required for HPV testing.If a vaginal source from a patient who has had atotal hysterectomy with removal of cervix wassubmitted, please contact the testing laboratoryfor alternative testing options.For additional information, please refer tohttp://education.[employer]/faq/CYT646z9(This link if provided for information/educational purposes only.)THIS TEST WAS PERFORMED AT:[facility] [place] [phone] SANTANA MD HPV 16 RNA NOT DETECTED NOT DETECTED [facility] HPV 18/45 RNA DETECTED(A ) NOT DETECTED [facility] Comment:Methodology: Transcr iption Mediated AmplificationCervical sources are required for HPV testing.If a vaginal source from a patient who has had atotal hysterectomy with removal of cervix wassubmitted, please contact the testing laboratoryfor alternative testing options.THIS TEST WAS PERFORMED AT:[facility] [place] [phone] SANTANA MD 07/23/2023 4:06 PM EDT 07/25/2023 8:20 AM EDT Chel Kwok MD LAB CYTOLOGY ORDERABLES Final Result [facility] [address] [place] [phone] * Pap Smear (07/23/2023 4:06 PM EDT) 07/23/2023 4:06 PM EDT 07/25/2023 8:20 AM EDT Todd [facility] - 07/31/2023 12:07 PM EDT ----- ------- Name: Tiffany [place] ? Age/Sex: 63/F ? : 1960 Unit#: [id number] ?? Attend Dr: Chel Kwok ?Re07/23/23 ?Status: DEP REF ? Location: [facility] ? Disch: ? ----- ------- SPEC : [id number] ? RECD: 07/25/23-819 ? STATUS: ??SOUT ? REQ NUM: [id number] ? NICHO: 07/23/23-1606 ? SUBM DR: Chel Kwok ? ENTERED: ??07/25/23-4 ?SP TYPE: Pap Smr ?OTHR : ? ORDERED: ??Pap Smear, PAP path review ?Addendum Addendum ??1 ?Entered: 07/31/23 HPV mRNA E6/E7: ?DETECTED This assay detects E6/E7 viral messenger RNA (mRNA) from 14 high-risk HPV types (16, 18, 31, 33, 35, 39, 45, 51, 52, 56, 58, 59, 66, 68) HPV Type 16 RNA: ?Not Detected HPV Type 18/45 RNA: ? DETECTED HPV testing performed by [facility], [place], [place]. ??See reference laboratory portion of the EMR for entire report. Addendum Signed (signature on file) Lyla Crawford MD 07/31/233 ? ----- ------- ? Interpretation ?? General Category: ?Epithelial cell abnormality. ?? Adequacy: ? Endocervical component present. ?? Interpretation: ? Atypical glandular cells; suspicious for adenocarcinoma. ? COMMENT: ??Results of HPV testing will be reported in an addendum. Preliminary results ?? were discussed with Dr. Kwok via phone on 07/27/23. ?Clinical Information LMP: Unknown date Previous PAP test: Unknown date/findings Other history: Postmenopausal bleeding, friable mass with nodular cervix ? Material Received ?? ThinPrep-Cervical ----- ------- Signed (signature on file) Lyla Crawford MD 07/27/23 1303 ? ----- ------- ? END OF REPORT ? us Chel Kwok MD LAB CYTOLOGY ORDERABLES Final Result [facility] [address] [place] [phone] * (ABNORMAL) Hepatitis C Antibody with Reflex to HCV, RNA, Quantitative, Real- Time PCR (01/01/2023 3:40 PM EDT) Hepatitis C Antibody Reactive( A) Nonreactive [facility] Comment:Presumptive evidence of antibodies to HCV. 01/01/2023 3:40 PM EDT 01/01/2023 4:07 PM EDT Peggy Flores MD LAB BLOOD ORDERABLES Final R esult [facility] [address] [place] [address] [phone] from Last 3 Months or Most Recently Relevant to Health Maintenance Insurance [facility] HMO Care Teams Intake Coordinator Relationship Specialty Start Date End Date Jessy Braxton MD [address] [place] [phone] PCP - General Family Medicine 12/19/17
--- OUTSIDE RECORDS SUMMARY | 2024-07-14 18:45 | XMS_ITS | Encounter Summary ---
Author Organization [employer] Address [address] [place] [address] [address] [place] [address] Care Team Providers Care Public Health Veterinarian Name Role Phone Jessy Braxton MD Primary Care Provide r Encounter Details Date Type Department Care Team (Latest Contact Info) Description 07/14/2024 Travel Social History Tobacco Use Types Packs/Day Years [...] Upcoming Encounters Date Type Department Care Team ( st Contact Info) Description 09/08/2024 1:30 PM EDT Clinical [address] [facility] [address] [place] [address] Abbie Coto RN documented as of this encounter Visit Diagnoses Not on filedocumented in this encounter Care Teams Public Health Veterinarian Relationship Specialty Start Date End Date Jessy Braxton MD [address] [place] [phone] PCP - General Family Medicine 12/19/17 documented as of this encounter
--- OUTSIDE RECORDS SUMMARY | 2024-07-14 18:45 | XMS_ITS | Encounter Summary ---
Author Organization [employer] Address [address] [place] [address] [address] [place] [address] Care Team Providers Care Public Health Informatician Name Role Phone Jessy Braxton MD Primary Care Provide r Reason for Visit * Reason Comments Med Refill Encounter Details Date Type Department Care Team ([facility] Contact Info) Description 04/16/2023 Refill [facility] [address] [place] [address] [phone] Corona Eugene MD [address] [place], [place] [phone] Opioid dependence, uncomplicated (CMS/HCC) Social History Tobacco [...] Upcoming Encounters Date Type Department Care Team ([facility] Contact Info) Description 09/08/2024 1:30 PM EDT Clinical Support [facility] [address] [place] [address] [phone] Abbie Coto RN documented as of this encounter Visit Diagnoses Diagnosis Opioid dependence, uncomplicated (CMS/HCC) documented in this encounter Care Teams Public Health Informatician Relationship Specialty Start Date End Date Jessy Braxton MD [address] [place] [address] [phone] PCP - General Family Medicine 12/19/17 documented as of this encounter
[2024-07-21 10:36] LABS: Benzoylecgonine 938
== END 2024-07-14 16:04 | disposition home or self-care (01) ==
LOC: HO.HHCLNP 16:03
PROVIDERS: Visit Provider Emergency Medicine
DX: F11.20 Opioid dependence, uncomplicated (principal)
CPT/HCPCS: 36415; 80353

== ENCOUNTER 2025-02-24 13:40 | Outpatient (REF) | payer BC, SELFPAY ==
--- NOTE | ~2025-02-24 | XR_ITS ---
EXAMINATION: XR CHEST CLINICAL INFORMATION: bronchitis COMPARISON: None available. TECHNIQUE: 2 views of the chest were obtained. FINDINGS: Bronchial wall thickening and increased attenuation in the right lower lobe suggestive of bronchopneumonia. Lungs are otherwise clear. Right jugular port with tip projecting over the distal SVC. Cardiac and mediastinal contours are normal. No pleural effusion or pneumothorax. Degenerative changes of the spine. XR/XR chest 2V IMPRESSION: Right lower lobe bronchopneumonia. Findings communicated by natasha castle 02/24/2025 at 2:25 PM. Electronically signed by: Aleksandra Machado MD 02/24/2025 02:24 PM [facility]
--- OUTSIDE RECORDS SUMMARY | 2025-02-24 19:34 | XMS_ITS | Clinical Summary ---
Author Organization [facility] Address [address] [place] [address] Phone Care Team Providers Care Willow Worker Name Role Phone Unavailable Primary Care Provider Unavailabl e Social History Tobacco Use Types Packs/Day Years Used Date Smoking Tobacco: Never Assessed Comments Unknown Sex and Gender Information Value Date Recorded Sex Assigned at Not on file Legal Sex Female 1:39 PM EDT Gender Identity Not on file Sexual Orientation Not on file Plan of Treatment Health Maintenance Due Date Last Done Comments Breast Cancer Screening 1960 Colorectal Cancer Screening: Colonoscopy 1960 Pneumococcal Vaccine: 50+ Years (1 of 1 - PCV) 06/20/2009 Zoster Vaccines (1 of 2) 06/20/2009 Hepatitis A Vaccines (2 of 2 - Risk 2-dose series) 07/31/2021 01/31/2021 Osteoporosis Screening (Bone Density Screening) 10/16/2023 Social Influencers of Health Screening 10/16/2023 Depression Screening 03/19/2024 Falls Risk Assessment 06/20/2024 DTaP,Tdap,and Td Vaccines (2 - Td or Tdap) 08/04/2024 08/04/2014 COVID-19 Vaccine (4 - 2024-2 6 season) 2024 04/01/2021, 06/01/2020, 05/04/2020 Influenza Vaccine (#1) 2024 8, 05/05/2015 Cervical Cancer Screening: P ap Smear [...] on patient's age to complete this topic [facility]
== END 2025-02-24 13:41 | disposition home or self-care (01) ==
LOC: HO.HHCX 13:40
PROVIDERS: Visit Provider Internal Medicine
DX: J40 Bronchitis, not specified as acute or chronic (principal)
CPT/HCPCS: 71046

== ENCOUNTER → 2025-02-24 13:40 | Outpatient (BNV) | payer BC, SELFPAY | PROVIDERS: Visit Provider Radiology Diagnostic Radiology | DX: J18.0 Bronchopneumonia, unspecified organism (principal) | CPT/HCPCS: 71046 ==